=== PATIENT | male | born 1965 | race Caucasian/White ===

== ENCOUNTER 2021-04-05 15:26 | Emergency (ER) | payer OTHER ==
[2021-04-05] MEDS ORDERED: CYCLOBENZAPRINE10 MG PO (16:37)
== END 2021-04-05 16:57 | disposition home or self-care (01) ==
LOC: ER1 15:26
DX: S16.1XXA Strain of muscle, fascia and tendon at neck level, initial encounter (principal); V49.9XXA Car occupant (driver) (passenger) injured in unspecified traffic accident, initial encounter
CPT/HCPCS: 72125; 99283